=== PATIENT | female | born 1960 | race Caucasian/White ===

== ENCOUNTER 2017-06-21 19:40 | Emergency (ER) | payer OTHER ==
[2017-06-21] MEDS ORDERED: Acetaminophen/oxyCODONE 325-5 MG Tab PO ONE (20:32)
--- NOTE | 2017-06-21 20:37 | EDM.PDOC ---
ED HPI GENERAL MEDICAL PROBLEM - General Chief Complaint: Lower Extremity Injury/Pain Stated Complaint: L KNEE PAIN Time Seen by Provider: 06/21/17 20:25 Source of Information: Reports: Patient, RN History Limitations: Reports: No Limitations - History of Present Illness INITIAL COMMENTS - FREE TEXT/NARRATIVE: 56 yo female slipped on the ice about 1830h today and hyperextended her L knee. Has most of her pain to the posterior lateral aspect. No pain meds before arrival. Use crutches when a teen. Here with her . 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 Pain Score (Numeric/FACES): 8 - Related Data Allergies Allergy/AdvReac Type Severity Reaction Status Date / Time alendronate sodium AdvReac Pain Verified 06/21/17 20:07 [From Fosamax] atorvastatin [From Lipitor] AdvReac Joint Pain Verified 06/21/17 20:07 levofloxacin [From Levaquin] AdvReac Other Verified 06/21/17 20:07 nizatidine AdvReac Diarrhea Verified 06/21/17 20:07 Home Meds: Home Meds Albuterol [Ventolin HFA] 2 puff INH ASDIRECTED 06/21/17 [History] Aspirin [Adult Low Dose Aspirin EC] 81 mg PO BEDTIME 06/21/17 [History] Azithromycin [IJP: Azithromycin] 250 mg PO ASDIRECTED 06/21/17 [History] Budesonide [Pulmicort] 1 puff .ROUTE ASDIRECTED 06/21/17 [History] Calcium Carbonate/Vitamin D3 [Calcium 250+D] 1 tab PO BEDTIME 06/21/17 [History] Diltiazem HCl [Taztia Xt] 1 tab PO DAILY 06/21/17 [History] Eletriptan [Relpax] 40 mg PO ASDIRECTED 06/21/17 [History] Fluticasone Propionate [Flonase] 2 squirt .ROUTE BID 06/21/17 [History] Fluticasone Propionate [Flovent HFA 220 MCG] 2 puff INH BID 06/21/17 [History] Fluticasone/Salmeterol [Advair HFA 230-21 MCG] 2 puff INH BID 06/21/17 [History] Levothyroxine [Synthroid] 88 mcg PO DAILY 06/21/17 [History] Mepolizumab (Recombinant) [Nucala] 100 units SQ ONCALL 06/21/17 [History] Pantoprazole Sodium [Protonix] 40 mg PO BID 06/21/17 [History] Potassium Chloride [Klor-Con 10] 10 meq PO DAILY 06/21/17 [History] Pramipexole Di-HCl [Pramipexole Dihydrochloride] 0.75 mg PO DAILY 06/21/17 [ History] Pravastatin Sodium 10 mg PO BEDTIME 06/21/17 [History] Valsartan/Hydrochlorothiazide [Valsartan-Hctz 320-25 mg Tab] 1 tab PO DAILY [History] guaiFENesin [Mucinex] 1 tab PO BID 06/21/17 [History] Past Medical History HEENT History: Reports: Allergic Rhinitis, Hard of Hearing, Impaired Vision Cardiovascular History: Reports: High Cholesterol, Hypertension Respiratory History: Reports: Asthma 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: Endometrial Ablation, Endometriosis Musculoskeletal History: Reports: Arthritis, Fracture, Fibromyalgia Endocrine/Metabolic History: Reports: Hypothyroidism - Infectious Disease History Infectious Disease History: Reports: Chicken Pox, Measles, Mumps, Shingles - Past Surgical History HEENT Surgical History: Reports: Other (See Below) Other HEENT Surgeries/Procedures: leason removal on throat GI Surgical History: Reports: Appendectomy, Colonoscopy, EGD Social & Family History - Tobacco Use Smoking Status *Q: Never Smoker - Caffeine Use Caffeine Use: Reports: Soda - Recreational Drug Use Recreational Drug Use: No Review of Systems - Review of Systems Review Of Systems: See Below Constitutional: Reports: No Symptoms Musculoskeletal: Reports: Joint Pain (L knee) Skin: Reports: No Symptoms Neurological: Reports: No Symptoms ED EXAM, GENERAL - Physical Exam Exam: See Below Exam Limited By: No Limitations General Appearance: Alert, WD/WN, No Apparent Distress, Obese Extremities: Normal Inspection, No Pedal Edema, Limited Range of Motion, Other ( Tender on palpation of the lateral joint line. Minimal effusion noted. No obvious laxity, but patient not tolerant of my exam due to pain. ). No: Normal Range of Motion, Increased Warmth, Redness Neurological: Alert, Oriented, CN II-XII Intact, Normal Cognition, No Motor/ Sensory Deficits Psychiatric: Normal Affect, Normal Mood Skin Exam: Warm, Dry, Intact, Normal Color, No Rash Course - Vital Signs Text/Narrative:: Was able to ambulate in the ER with crutches. Last Recorded V/S: Last Vital Signs Temp 37.1 C 06/21/17 20:01 Pulse 87 06/21/17 20:01 Resp 16 06/21/17 20:01 BP 140/84 06/21/17 20:01 Pulse Ox 96 06/21/17 20:01 - Orders/Labs/Meds Orders: Active Orders 24 hr Category Date Time Status Knee 3V Lt [CR] Stat Exams 06/21/17 20:31 Taken Meds: Medications Discontinued Medications Generic Name Dose Route Start Last Admin Trade Name Freq PRN Reason Stop Dose Admin Oxycodone/Acetaminophen 1 tab 06/21/17 20:32 06/21/17 20:35 Percocet 325-5 Mg PO 06/21/17 20:33 1 tab ONETIME ONE Administration - Radiology Interpretation Free Text/Narrative:: L knee [id number] Departure - Departure Time of Disposition: 21:15 Disposition: Home, Self-Care 01 Condition: Good Clinical Impression: Left knee sprain Qualifiers: Encounter type: initial encounter Involved ligament of knee: unspecified ligament Qualified Code(s): S83.92XA - Sprain of unspecified site of left knee, initial encounter - Discharge Information Referrals: Ruthann Carbajal MD [Primary Care Provider] - Forms: ED Department Discharge - My Orders Last 24 Hours: My Active Orders 06/21/17 20:31 Knee 3V Lt [CR] Stat - Assessment/Plan Last 24 Hours: My Active Orders 06/21/17 20:31 Knee 3V Lt [CR] Stat
--- NOTE | 2017-06-22 09:18 | CR ---
Knee 3V Lt HISTORY: Pain COMPARISON: None FINDINGS: In the distal shaft of the femur there is a area of coarse calcification measuring 17 mm x 9 mm most compatible with incidental benign enchondroma. There is normal joint space preservation. No acute fracture or effusion. No bony destructive process. Impression: Negative left knee.
== END 2017-06-21 21:35 | disposition home or self-care (01) ==
LOC: JP.ED 19:40
DX: S83.92XA Sprain of unspecified site of left knee, initial encounter (principal); I10 Essential (primary) hypertension; E78.00 Pure hypercholesterolemia, unspecified; Z79.899 Other long term (current) drug therapy; Z88.8 Allergy status to other drugs, medicaments and biological substances; W00.0XXA Fall on same level due to ice and snow, initial encounter
CPT/HCPCS: 73562; 99284; A9270

== ENCOUNTER 2020-06-01 16:48 | Emergency (ER) | payer OTHER ==
[2020-06-01] MEDS ORDERED: Acetaminophen/oxyCODONE 325-5 MG Tab PO STA ×2 (17:23→17:55)
--- NOTE | 2020-06-01 17:30 | EDM.PDOC ---
<Gavin Reyes G - Last Filed: 06/01/20 17:25> ED HPI GENERAL MEDICAL PROBLEM - General Chief Complaint: Lower Extremity Injury/Pain Stated Complaint: L shoulder and L knee pain after a fall at home. Time Seen by Provider: 06/01/20 17:20 Source of Information: Reports: Patient, Old Records, RN History Limitations: Reports: No Limitations - History of Present Illness INITIAL COMMENTS - FREE TEXT/NARRATIVE: 59 yo female fell in her home today and landed on her L knee with pain now to the outer part of that body part. Also, thinks she injured her L shoulder in the fall and suspects she dislocated it and it went back in and later out and in again. No hx of this problem in the past. 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 Pain Score (Numeric/FACES): 9 - Related Data Allergies Allergy/AdvReac Type Severity Reaction Status Date / Time alendronate sodium AdvReac Pain Verified 06/01/20 17:11 [From Fosamax] atorvastatin [From Lipitor] AdvReac Joint Pain Verified 06/01/20 17:11 levofloxacin [From Levaquin] AdvReac Other Verified 06/01/20 17:11 nizatidine AdvReac Diarrhea Verified 06/01/20 17:11 Home Meds: Home Meds Albuterol [Ventolin HFA] 2 puff INH ASDIRECTED 06/21/17 [History] Aspirin [Adult Low Dose Aspirin EC] 81 mg PO BEDTIME 06/21/17 [History] Azithromycin [IJP: Azithromycin] 250 mg PO ASDIRECTED 06/21/17 [History] Budesonide [Pulmicort] 1 puff .ROUTE ASDIRECTED 06/21/17 [History] Calcium Carbonate/Vitamin D3 [Calcium 250+D] 1 tab PO BEDTIME 06/21/17 [History] Eletriptan [Relpax] 40 mg PO ASDIRECTED 06/21/17 [History] Fluticasone Propionate [Flonase] 2 squirt .ROUTE BID 06/21/17 [History] Fluticasone Propionate [Flovent HFA 220 MCG] 2 puff INH BID 06/21/17 [History] Fluticasone/Salmeterol [Advair HFA 230-21 MCG] 2 puff INH BID 06/21/17 [History] Levothyroxine [Synthroid] 88 mcg PO DAILY 06/21/17 [History] Mepolizumab (Recombinant) [Nucala] 100 units SQ ONCALL 06/21/17 [History] Pantoprazole Sodium [Protonix] 40 mg PO BID 06/21/17 [History] Potassium Chloride [Klor-Con 10] 10 meq PO DAILY 06/21/17 [History] Pramipexole Di-HCl [Pramipexole Dihydrochloride] 0.75 mg PO DAILY 06/21/17 [History] Pravastatin Sodium 10 mg PO BEDTIME 06/21/17 [History] Valsartan/Hydrochlorothiazide [Valsartan-Hctz 320-25 mg Tab] 1 tab PO DAILY 06/21/17 [History] dilTIAZem HCL [Taztia Xt] 1 tab PO DAILY 06/21/17 [History] guaiFENesin [Mucinex] 1 tab PO BID 06/21/17 [History] Past Medical History HEENT History: Reports: Allergic Rhinitis, Hard of Hearing, Impaired Vision Cardiovascular History: Reports: High Cholesterol, Hypertension Respiratory History: Reports: Asthma 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: Endometrial Ablation, Endometriosis Musculoskeletal History: Reports: Arthritis, Fracture, Fibromyalgia Endocrine/Metabolic History: Reports: Hypothyroidism - Infectious Disease History Infectious Disease History: Reports: Chicken Pox, Measles, Mumps, Shingles - Past Surgical History HEENT Surgical History: Reports: Other (See Below) Other HEENT Surgeries/Procedures: leason removal on throat GI Surgical History: Reports: Appendectomy, Colonoscopy, EGD Social & Family History - Tobacco Use Tobacco Use Status *Q: Never Tobacco User - Caffeine Use Caffeine Use: Reports: Soda - Recreational Drug Use Recreational Drug Use: No Review of Systems - Review of Systems Review Of Systems: See Below Constitutional: Reports: No Symptoms Musculoskeletal: Reports: Shoulder Pain (left), Joint Pain (L knee) Skin: Reports: No Symptoms Neurological: Reports: No Symptoms ED EXAM, GENERAL - Physical Exam Exam: See Below Exam Limited By: No Limitations General Appearance: Alert, WD/WN, No Apparent Distress, Obese Eye Exam: Bilateral Eye: Normal Inspection Ears: Normal External Exam, Normal Canal, Hearing Grossly Normal Ear Exam: Bilateral Ear: Auricle Normal, Canal Normal Nose: Normal Inspection, No Blood Throat/Mouth: Normal Inspection, Normal Lips, Normal Oropharynx, Normal Voice, No Airway Compromise Head: Atraumatic, Normocephalic Neck: Normal Inspection Respiratory/Chest: No Respiratory Distress Cardiovascular: Regular Rate, Rhythm Extremities: Normal Inspection, Limited Range of Motion (especially of L shoulder). No: Normal Range of Motion (L shoulder pain with movement), Non- Tender, Pedal Edema, Increased Warmth, Mottled, Redness Neurological: Alert, Oriented, CN II-XII Intact, Normal Cognition, No Motor/Sensory Deficits Psychiatric: Normal Affect, Normal Mood Skin Exam: Warm, Dry, Intact, Normal Color, No Rash Course - Radiology Interpretation Free Text/Narrative:: L shoulder X-ray- L knee X-ray- Departure - Departure Disposition: Home, Self-Care 01 Clinical Impression: Left shoulder pain Qualifiers: Chronicity: acute Qualified Code(s): M25.512 - Pain in left shoulder - Discharge Information Instructions: Shoulder Pain, Shoulder Dislocation, [id number] Referrals: Ruthann Carbajal MD [Primary Care Provider] - Forms: ED Department Discharge Additional Instructions: Please remain in the shoulder immobilizer until reevaluated by orthopedics, use Percocet as needed for pain control, the orthopedic clinic will call you tomorrow for an appointment time Sepsis Event Note (ED) - Evaluation Sepsis Screening Result: No Definite Risk <CecillerMartin - Last Filed: 06/01/20 19:01> Course - Vital Signs Last Recorded V/S: Last Vital Signs Temp 97.2 F 06/01/20 17:09 Pulse 72 06/01/20 18:47 Resp 16 06/01/20 18:47 BP 137/73 06/01/20 18:47 Pulse Ox 94 L 06/01/20 18:47 - Orders/Labs/Meds Orders: Active Orders 24 hr Category Date Time Status Notify Provider Consults [RC] ASDIRECTED Care 06/01/20 18:58 Ordered Consult to Orthopedic Clinic [CONS] Routine Cons 06/01/20 18:58 Ordered Consult to Physician [CONS] Routine Cons 06/01/20 18:58 Ordered Knee 3V Lt [CR] Stat Exams 06/01/20 17:24 Taken Shoulder Comp Lt [CR] Stat Exams 06/01/20 17:24 Taken DME for Discharge [COMM] Urgent Oth 06/01/20 18:57 Ordered Meds: Medications Discontinued Medications Generic Name Dose Route Start Last Admin Trade Name Frefan PRN Reason Stop Dose Admin Oxycodone/Acetaminophen 1 tab 06/01/20 17:23 06/01/20 17:30 Percocet 325-5 Mg PO 06/01/20 17:24 1 tab ONETIME STA Administration Oxycodone/Acetaminophen 1 tab 06/01/20 17:55 Percocet 325-5 Mg PO 06/01/20 17:56 ONETIME STA Departure - Departure Time of Disposition: 19:00 Condition: Fair Sepsis Event Note (ED) - Focused Exam Vital Signs: Vital Signs Temp Pulse Resp BP Pulse Ox 06/01/20 18:47 72 16 137/73 94 L 06/01/20 17:09 97.2 F 80 16 134/80 95 - My Orders Last 24 Hours: My Active Orders 06/01/20 18:57 DME for Discharge [COMM] Urgent 06/01/20 18:58 Notify Provider Consults [RC] ASDIRECTED Consult to Orthopedic Clinic [CONS] Routine Consult to Physician [CONS] Routine - Assessment/Plan Last 24 Hours: My Active Orders 06/01/20 18:57 DME for Discharge [COMM] Urgent 06/01/20 18:58 Notify Provider Consults [RC] ASDIRECTED Consult to Orthopedic Clinic [CONS] Routine Consult to Physician [CONS] Routine Plan: Took over care from Dr. Galindo at 1830 pending results of x-rays Assessment Acuity = acute Site and laterality = left shoulder pain with history of spontaneous dislocation and reduction concern for joint laxity, left knee pain Etiology = trauma Manifestations = none Location of injury = Home Lab values = shoulder x-ray knee x-ray I did review films myself I cannot appreciate any acute process, the official read from radiology is pending Plan She is placed in a shoulder immobilizer prescription written for Percocet 5/325 1 tab p.o. 3 times daily as needed total #6 consultation with orthopedics set up for this week This note was dictated using dragon voice recognition software please call with any questions on syntax or grammar.
--- NOTE | 2020-06-02 09:07 | CR ---
Knee 3V Lt, Shoulder Comp Lt CLINICAL HISTORY: Trauma, fall FINDINGS: No acute fracture or dislocation is noted. There are no osseous lesions. Articular surfaces are smooth. Impression: Negative Knee 3V Lt, Shoulder Comp Lt CLINICAL HISTORY: Fall FINDINGS: There is no acute fracture or dislocation in the left shoulder. Articular surfaces are smooth. Impression: Negative
== END 2020-06-01 19:30 | disposition home or self-care (01) ==
LOC: JP.ED 16:48
DX: M25.512 Pain in left shoulder (principal); M25.562 Pain in left knee; I10 Essential (primary) hypertension; E78.00 Pure hypercholesterolemia, unspecified; J45.909 Unspecified asthma, uncomplicated; M19.90 Unspecified osteoarthritis, unspecified site; E03.9 Hypothyroidism, unspecified; Z88.8 Allergy status to other drugs, medicaments and biological substances; Z79.82 Long term (current) use of aspirin; Z79.899 Other long term (current) drug therapy
CPT/HCPCS: 73030; 73562; 99283; A9270